=== PATIENT | male | born 1975 | race Caucasian/White ===

== ENCOUNTER 2022-04-09 07:16 | Emergency (ER) | payer MEDICAID ==
[~2022-04-09 07:16] MED LIST: BUPR100 PO; CLON.1 PO; DIVA500EC PO; GABA600 PO; Inderal60 MG PO; Neurontin 300300 MG PO; PARO30 PO; Prednisone20 MG PO; TRAZ100 PO; Ultram50 MG PO; Wellbutrin Sr200 MG PO
[2022-04-09] MEDS ORDERED: Amoxicillin500 MG PO (08:26)
== END 2022-04-09 08:27 | disposition home or self-care (01) ==
DX: K04.7 Periapical abscess without sinus (principal); F17.210 Nicotine dependence, cigarettes, uncomplicated; Z79.899 Other long term (current) drug therapy; Z79.52 Long term (current) use of systemic steroids